=== PATIENT | male | born 1955 | race Caucasian/White ===

== ENCOUNTER 2024-08-31 14:14 | Emergency (ER) | payer OTHER, SELFPAY ==
[2024-08-31 14:22] VITALS: BP 136/84
--- NOTE | 2024-08-31 14:38 | ED.GENMED ---
History of Present Illness
General
Chief Complaint: Numbness
Source: patient
Exam Limitations: none
Time Seen by Provider: 08/31/24 14:32
Nursing documentation reviewed up to this point in time: agreed with
History of Present Illness
History of Present Illness:
Patient is a 69-year-old male that presents to the ER for evaluation. Last night he noticed the left side of his face felt like he received Novocaine and he also noticed it was more difficult to close his left eye and blink. In addition he noticed
when he was trying to brush his teeth water was dripping from his left side of his mouth.
He denies any headache fever chills joint pain rash. He drove himself to the ER.
Past History
Past History
ED Past Medical History: HTN
ED Past Surgical History: None
Review of Systems
Review of Systems
Allergies reviewed?: Yes
All Other Systems: ROS reviewed and negative except as documented in HPI and ROS
Constitutional: Reports no symptoms; Denies fever, fatigue or chills
EENT: Reports other (Numbness sensation to the left side of his face mouth)
Respiratory: Denies cough
ABD/GI: Reports no symptoms
: Reports no symptoms
Musculoskeletal: Reports no symptoms
Skin: Reports no symptoms; Denies rash
Neurological: Reports other (Numb like feeling to the left side of his face; noticed left facial droop a home ); Denies headache
Hematologic/Lymphatic: Reports no symptoms
Psychiatric: Reports no symptoms
Phy Exam
General Physical Exam
General Presentation: no apparent distress
General age: appears stated age
General Skin: warm and dry
General Habitus: normal
General Mental: alert
General Hydration: appears well hydrated
Cardiovascular Exam
Cardiovascular Exam: regular rate/rhythm, no murmur and normal peripheral pulses
Pulmonary Exam
Pulmonary Exam: lungs clear and no respiratory distress
Neurological Exam
Neurological Exam: alert, oriented x3 and other (Patient with left-sided facial droop drooping of left eye brow; unable to fully raise left eyebrow and able to fully close left eye)
Musculoskeletal Exam
Musculoskeletal Exam: full ROM
Skin Exam
Skin Exam: normal color and warm/dry
Psychiatric Exam
Psychiatric Exam: normal mood/affect
Course
Orders/Labs/Results
Orders:
Orders
08/31/24 14:51
Prednisone [Deltasone] 60 mg PO NOW STA
08/31/24 14:52
Valacyclovir HCl [Valtrex] 1,000 mg PO NOW STA
08/31/24 15:05
Lyme [facility]
Vital Signs
Initial and Last Documented VS:
Initial Vital Signs
Temp Pulse Resp BP Pulse Ox
98.0 F 90 18 136/84 99
08/31/24 14:22 08/31/24 14:22 08/31/24 14:22 08/31/24 14:22 08/31/24 14:22
Last Documented Vital Signs
Temp Pulse Resp BP Pulse Ox
98.0 F 90 18 136/84 99
08/31/24 14:22 08/31/24 14:22 08/31/24 14:22 08/31/24 14:22 08/31/24 14:22
[employer] consulted with Physician
[employer] consulted with physician?: Yes
Name of Physician Consulted: Noh
MDM/Problems Addressed
MDM/Problems Addressed:
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 Patient denies any actual joint pain or rash denies any fevers. Case discussed ED physician will DC with steroids and Valtrex will check Lyme with close outpatient follow family doctor
*Critical Care Note
Total Time (30-74mins, 75-104mins- exclusive of procedures): Not Applicable
ED Attending Note
-
Portions of this chart may have been created with voice recognition software.� Occasional wrong word or��sound alike� substitutions may have occurred due to the inherent limitations of voice recognition software.
Discharge Plan
Departure
Patient Disposition: Home (Routine Discharge)
Date of Disposition: 08/31/24
Time of Disposition: 14:54
Patient with high blood pressure during this ER visit?: Yes
Covid-19: Not Applicable
Discharge Problem:
Marcos's palsy
Instructions: Marcos's Palsy (DC), BLOOD PRESSURE
Prescriptions:
New
prednisone 20 mg tablet
60 mg PO DAILY Qty: 18 0RF
valacyclovir 1 gram tablet
1,000 mg PO TID Qty: 21 0RF
No Action
Amlodipine-Atorvast 5-20 mg
1 tab PO DAILY
tamsulosin [Flomax] 0.4 MG capsule
0.4 mg PO DAILY
finasteride 5 MG tablet
5 mg PO DAILY
cephalexin [Keflex] 500 MG capsule
500 mg PO BID Qty: 14 0RF
Referrals:
Simon Hernandez MD [Family Provider] -
Activity Restrictions/Additional Instructions:
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 Take medications as prescribed including steroid and antiviral medication. Also please apply artificial tears 4 times daily and up to hourly if needed protection of your left eye.
During sleep you may apply artificial tear ointment and may tape the eyelid shut.
Return to the ER for any worsening of symptoms follow-up with family doctor the next several days.
A Lyme test was done here in the ER and you will be notified if positive.
Interventions
Interventions:
*Risk Screen - Suicide Last Done: 08/31/24 14:22
*General Assessment Last Done: 08/31/24 14:22
*Neglect/Abuse Screening Last Done: 08/31/24 14:22
*Nursing Disposition Last Done: 08/31/24 15:45
ED- Neurological Assessment Last Done: 08/31/24 15:15
Discharge Date and Time
Discharge Date/Time: 08/31/24 15:45
Print Language: MALDIVIAN
[2024-08-31] MEDS: DELTASONE 60 MG PO (15:19)
[2024-08-31] MEDS: VALTREX 1000 MG PO (15:19)
[2024-09-01 13:31] LABS: Lyme Antibody Screen, EIA Negative (Negative)
== END 2024-08-31 15:45 | disposition home or self-care (01) ==
LOC: EMR 14:14
PROVIDERS: Nurse Practitioner; EMERGENCY PHYSICIAN Emergency Medicine; FAMILY PHYSICIAN Family Medicine
DX: G51.0 Bell's palsy (principal); I10 Essential (primary) hypertension
CPT/HCPCS: 99282; 86618